=== PATIENT | female | born 1940 | race Caucasian/White ===

== ENCOUNTER → 2023-11-23 09:58 | Outpatient (REF) | payer OTHER, SELFPAY | LOC: RAD 09:58 | PROVIDERS: ATTENDING PHYSICIAN Internal Medicine | DX: I10 Essential (primary) hypertension (principal); R47.89 Other speech disturbances | CPT/HCPCS: 93975 ==

== ENCOUNTER → 2024-04-26 08:11 | Outpatient (REF) | payer OTHER, SELFPAY | LOC: MRI 3T 08:11 | PROVIDERS: ATTENDING PHYSICIAN Neurological Surgery; FAMILY PHYSICIAN Internal Medicine | DX: D32.0 Benign neoplasm of cerebral meninges (principal) | CPT/HCPCS: 70553; A9575 ==

== ENCOUNTER → 2025-05-09 17:30 | Outpatient (REF) | payer OTHER, SELFPAY | LOC: MRI 3T 17:30 | PROVIDERS: ATTENDING PHYSICIAN Neurological Surgery; FAMILY PHYSICIAN Internal Medicine | DX: D32.0 Benign neoplasm of cerebral meninges (principal) | CPT/HCPCS: 70553; A9575 ==

== ENCOUNTER 2025-08-18 09:14 | Emergency (ER) | payer OTHER, SELFPAY ==
[2025-08-18 09:15] VITALS: BMI 20.5
[2025-08-18 09:16] VITALS: BP 153/67
[2025-08-18 09:54] VITALS: BP 156/83
[2025-08-18] MEDS: DUONEB 3 ML INH ×2 (10:23→11:59)
[2025-08-18] MEDS: DECADRON 10 MG IV (10:35)
[2025-08-18 10:41] VITALS: BP 133/61
[2025-08-18 10:55] LABS: Hematocrit 38.4 % (37.0-47.0); Hemoglobin 12.9 g/dL (12.0-16.0); Mean Corp Hgb Conc. 33.6 g/dL (33.0-37.0); Mean Corpuscular Volume 93.4 fL (81.0-99.0); Nucleated Red Blood Cells % 0 %; Platelet Count 219 10^3/uL (130-400); Red Cell Dist. Width 13.1 % (11.5-14.5)
--- NOTE | 2025-08-18 10:59 | ED.GENMED ---
History of Present Illness
General
Chief Complaint: Breathing Problem
Time Seen by Provider: 08/18/25 09:45
History of Present Illness
History of Present Illness:
85-year-old female with history of hypertension and hyperlipidemia presenting to the emergency department for cough and difficulty breathing. Patient reports that she returned home from a trip to [place] on Wednesday, 5 days ago. Upon return home,
had started to have a cough and congestion. She feels like she is wheezing, however denies history of asthma. Cough has been productive. Does note a sick contact while she was on the train in [place]. Denies any associated chest pain. Denies
any fever. Denies any additional medical complaints.
Past History
Past History
ED Past Medical History: HTN and Hypercholesterolemia
ED Past Surgical History: Appendectomy and Other
Social History
Personal:
Living: with family
Phy Exam
Physical Exam
Physical Exam:
General: Well-appearing, no clinical signs of dehydration, nontoxic and in no acute distress
HEENT: protecting airway
Neck: appears supple
CV: Normal heart rate, regular rhythm
Resp: Mild tachypnea with rhonchorous respirations bilaterally and expiratory wheeze
Abd: No distention
Extremities: No deformities, no swelling
Neuro: alert, no focal neurologic deficit
: deferred
Rectal: deferred
Psych: Normal affect
Skin: Intact
Scores
Heart Failure Risk
Heart Failure Risk Score: Not Applicable
Course
Orders/Labs/Results
Orders:
Orders
08/18/25 09:42
Chest [CR Chest - 2 Views ] Urgent
Comment:
Reason For Exam: cough, SOB
08/18/25 10:04
Dexamethasone Sod Phosphate [Decadron] 10 mg IV NOW STA
Ipratropium/Albuterol Sulfate [Duoneb] 3 ml INH R NOW STA
08/18/25 10:33
Complete Blood Count/With Diff Urgent
Comprehensive Metabolic Panel Urgent
08/18/25 10:34
COVID-19 Antigen Urgent
Source: Nasal Swab
Influenza A+B Rapid Molecular Urgent
[facility] Source: Nasal Swab
Specimen Description:
08/18/25 11:46
Ipratropium/Albuterol Sulfate [Duoneb] 3 ml INH R NOW ONE
Abnormal Lab Results
08/18/25
10:33
RBC 4.11 L 10^6/uL
(4.20-5.40)
MCH 31.4 H pg
(27.0-31.0)
08/18/25 10:33
08/18/25 10:33
Vital Signs
Initial and Last Documented VS:
Initial Vital Signs
Temp Pulse Resp BP Pulse Ox
98.4 F 67 16 153/67 94
08/18/25 09:16 08/18/25 09:16 08/18/25 09:16 08/18/25 09:16 08/18/25 09:16
Last Documented Vital Signs
Temp Pulse Resp BP Pulse Ox
98.2 F 62 18 141/110 92
08/18/25 12:09 08/18/25 12:09 08/18/25 12:09 08/18/25 12:01 08/18/25 12:30
MDM/Problems Addressed
MDM/Problems Addressed:
85-year-old female with history of hypertension hyperlipidemia presenting for cough and congestion vital signs on are normal.
On exam, patient is resting comfortably, no acute respiratory distress. However on exam, does have rhonchorous respiration bilaterally with expiratory wheezing. Concern for viral URI versus acute pneumonia. Given wheezing, will start patient on a
steroid and DuoNeb and reassess for improvement. Will also swab for COVID and flu and obtain laboratory analysis.
12:00 -patient's chest x-ray without signs of pneumonia. COVID and flu are negative. On reassessment improvement in breathing, continues to have scattered rhonchi and wheezing. Will administer additional DuoNeb. Ultimately feel stable for
discharge, with suspicion for bronchitis. Will prescribe steroids and inhaler. Return precautions discussed and patient verbalized understanding
*Pulse Oximetry
SaO2: 92
Oxygen Mode of Delivery: Room air
Patient hypoxic: no
*Critical Care Note
Total Time (30-74mins, 75-104mins- exclusive of procedures): Not Applicable
ED Attending Note
-
Portions of this chart may have been created with voice recognition software.� Occasional wrong word or��sound alike� substitutions may have occurred due to the inherent limitations of voice recognition software.
Discharge Plan
Departure
Patient Disposition: Home (Routine Discharge)
Date of Disposition: 08/18/25
Time of Disposition: 12:38
Patient with high blood pressure during this ER visit?: Yes
Condition: Good
Discharge Problem:
Bronchitis, Cough
Instructions: Acute Bronchitis, Adult (DC), BLOOD PRESSURE
Prescriptions:
New
prednisone 20 mg tablet
40 mg PO DAILY 4 Days Qty: 8 0RF
albuterol sulfate 90 mcg/actuation aerosol powdr breath activated
2 inh inhalation Q6H PRN (Reason: shortness of breath) Qty: 1 0RF
No Action
labetalol 200 mg Tablet
100 mg PO BID
amlodipine 5 mg Tablet
5 mg PO DAILY
aspirin 81 mg Tablet
81 mg PO Q OTHER DAY
Activity Restrictions/Additional Instructions:
You were seen in the emergency department for cough and shortness of breath
You were found to have reassuring vital signs, chest x-ray, viral swabs. We suspect they have an acute bronchitis.
Please follow-up closely with your primary care physician.
Return to the emergency department for any worsening of your symptoms, or any development of chest pain, difficulty breathing, abdominal pain with persistent vomiting and inability to tolerate food or liquid by mouth (concern for dehydration),
weakness, headache or confusion, fever greater than 100.4, or any additional symptoms that are concerning to you.
Thank you for choosing [facility].
Interventions
Interventions:
*Risk Screen - Suicide Last Done: 08/18/25 09:16
*General Assessment Last Done: 08/18/25 09:44
*Neglect/Abuse Screening Last Done: 08/18/25 09:16
*ED- Fall Risk Assessment Last Done: 08/18/25 09:44
*ED COVID-19 Vaccine History Last Done: 08/18/25 09:44
*ED Influenza Vaccine History Last Done: 08/18/25 09:44
*Nursing Disposition Last Done: 08/18/25 12:55
ED- Cardiac Assessment Last Done: 08/18/25 09:44
ED- Pulmonary Assessment Last Done: 08/18/25 09:44
Discharge Date and Time
Discharge Date/Time: 08/18/25 12:55
Print Language: TELUGU
[2025-08-18 11:00] VITALS: BP 139/69
[2025-08-18 11:04] LABS: ALT (SGPT) 19 U/L (0-35); AST (SGOT) 21 U/L (14-36); Albumin 4.0 g/dl (3.5-5.0); Alkaline Phosphatase 79 U/L (38-126); Blood Urea Nitrogen 13 mg/dl (7-17); Calcium 9.5 mg/dl (8.4-10.2); Carbon Dioxide 30 mmol/L (22-30); Chloride 104 mmol/L (98-107); Estimated Creatinine Clearance 62 ml/min; Glucose 88 mg/dl (70-99); Potassium 4.6 mmol/L (3.5-5.1); Sodium 135 mmol/L (135-145); Total Protein 6.8 g/dl (6.3-8.2); eGFR > 60.00
[2025-08-18 11:06] LABS: COVID-19 Antigen Negative (Negative)
[2025-08-18 12:01] VITALS: BP 141/110
== END 2025-08-18 12:55 | disposition home or self-care (01) ==
LOC: EMR 09:14
PROVIDERS: EMERGENCY PHYSICIAN Student in an Organized Health Care Education/Training Program; FAMILY PHYSICIAN Internal Medicine
DX: J40 Bronchitis, not specified as acute or chronic (principal); I10 Essential (primary) hypertension; E78.00 Pure hypercholesterolemia, unspecified; Z11.52 Encounter for screening for COVID-19; Z90.49 Acquired absence of other specified parts of digestive tract
CPT/HCPCS: 96374; 94640; 99284; 71046; 80053; 85025; 87502; 87811

== ENCOUNTER → 2025-09-27 10:10 | Outpatient (REF) | payer OTHER, SELFPAY | LOC: RAD 10:10 | PROVIDERS: ATTENDING PHYSICIAN Nurse Practitioner Adult Health; FAMILY PHYSICIAN Internal Medicine | DX: M54.2 Cervicalgia (principal) | CPT/HCPCS: 72050 ==